=== PATIENT | female | born 2000 | race Caucasian/White ===

== ENCOUNTER 2024-01-07 13:13 | Emergency (ER) | payer OTHER, SELFPAY ==
--- NOTE | ~2024-01-07 | CT_ITS ---
EXAMINATION: CT cervical spine wo con DATE: 01/07/2024 14:55 INDICATION: abnormal xray TECHNIQUE: Computed tomography (CT) of the cervical spine was performed without intravenous contrast. Automated exposure control and iterative reconstruction technique were employed. The dose-length pro duct was 263.96 mGy-cm. COMPARISON: None. FINDINGS: Exam limited by nonstandard positioning and obliquity in the initial axial and reformatted views. Vertebral Body Alignment: Intact. Reversed lordosis, centered at C6. Craniocervical and atlantoaxial alignment: Moderate degenerative change. Alignment intact. Osseous structures/fracture: No evidence of a lytic or blastic process in the visualized spine. No e vidence of acute fracture. Cervical soft tissues: The paraspinal soft tissues planes are maintained. 1.8 cm right thyroid nodule . Degenerative changes: No significant degenerative changes. IMPRESSION: No acute fracture or traumatic malalignment in the cervical spine. 1.8 cm right thyroid nodule, recommend nonemergent thyroid ultrasound for further characterization. Reviewed, dictated and finalized at location K. IMPRESSION: No acute fracture or traumatic malalignment in the cervical spine. 1.8 cm right thyroid nodule, recommend nonemergent thyroid ultrasound for furth er characterization.
--- NOTE | ~2024-01-07 | XR_ITS ---
XR_[id number] 01/07/2024 14:00 Indication: Cervical pain. Procedure: 5 views of the cervical spine Comparison: No prior studies for comparison. Findings: There is dextroscoliosis. Vertebral body heights are maintained. There is abnormal appearan ce to the facet joints at C6-7. Cannot exclude perched facet. Recommend correlation with CT. No prev ertebral soft tissue abnormality. Impression: 1: Atypical appearance to the facet joints at C6-7. Correlation with CT recommended to exclude perche d facet. Reviewed, dictated and finalized at location B. Impression: 1: Atypical appearance to the facet joints at C6-7. Correlation with CT recomme nded to exclude perched facet.
[2024-01-07 13:17] VITALS: BP 151/107; PULSE 96; RESP 20; TEMP 36.4; O2SAT 100
[2024-01-07] MEDS: KETOROLAC 30 MG/ML VIAL (*BKC) IM (16:21)
[2024-01-07] MEDS: ACETAMINOPHEN 500 MG TABLET 1000 MG PO (16:21)
[2024-01-07] MEDS: CYCLOBENZAPRINE HCL 10 MG TABLET PO (16:21)
--- NOTE | 2024-01-07 17:22 | ED.GENADULT ---
HPI - General Adult General Chief complaint: Neck Pain/Injury Stated complaint: neck pain Time Seen by Provider: 01/07/24 16:04 History of Present Illness HPI narrative: Kamini Black is a 23 y/o female who presents with complaints of right sided neck pain that started yesterday. No midline cervical spine pain, pain more lateral and right side worse with movement and palpation No sore throat or difficulty swallowing. She has not taken anything for the pain. Denies any fever/chills Related Data Allergies Allergy/AdvReac Type Severity Reaction Status Date / Time nifedipine Allergy Unknown Unknown Verified 01/07/24 13:13 Review of Systems Review of Systems: All systems reviewed & are unremarkable except as noted in HPI and below PMFSH Family History Family History Other Family history of malignant neoplasm Social History Social History Smoking status: Current every day smoker Alcohol intake: never Exam Narrative: GENERAL: Well-appearing, well-nourished, and in no acute distress. HEAD: Normocephalic, atraumatic. EYES: PERRLA and EOMI. ENT: Nares clear, no rhinorrhea or epistaxis. Mucous membranes moist. Oropharynx without tonsillar hypertrophy exudate or other lesions. NECK: Supple. No adenopathy or masses. No carotid bruits or JVD CHEST: Clear to auscultation. No respiratory distress. No wheezes rales or rhonchi HEART: Regular rate and rhythm. No murmur heard. Normal peripheral pulses. ABDOMEN: Soft, nontender, nondistended, normal active bowel sounds. EXTREMITIES: Normal range of motion. No edema. SKIN: Warm, dry, no rash. NEURO: No focal deficits. Alert and oriented x3. PSYCH: Normal mood and affect. Course Vital Signs Vital signs: Vital Signs Temperature 36.4 C L 01/07/24 13:17 Pulse Rate 96 01/07/24 13:17 Respiratory Rate 20 01/07/24 13:17 Blood Pressure 151/107 H 01/07/24 13:17 Pulse Oximetry 100 01/07/24 13:17 Oxygen Delivery Room Air 01/07/24 13:17 Temperature 36.4 C L 01/07/24 13:17 Pulse Rate 96 01/07/24 13:17 Respiratory Rate 20 01/07/24 13:17 Blood Pressure 151/107 H 01/07/24 13:17 Pulse Oximetry 100 01/07/24 13:17 Oxygen Delivery Room Air 01/07/24 13:17 Medical Decision Making MDM Narrative Medical decision making narrative: Patient with right sided neck pain that started yesterday / no midline cervical spine tenderness Pain more muscular in nature worse with movement and palpation No known injury or trauma NO erythema/ evidence of infection oral pharynx clear/ pink intact no ear pain patinet was protocoled xr and ct of cervical spine in triage xr of CC and CT of CC - No acute fracture or traumatic malalignment in the cervical spine. 1.8 cm right thyroid nodule, recommend nonemergent thyroid ultrasound for further characterization. Atypical appearance to the facet joints at C6-7. Correlation with CT recommended to exclude perched facet. Discussed findings with pt and re-evaluated after the pain medication and she states she feels much better pain has improved not all the way gone but she has improved mobility with the decreased pain Will d/c home with continued pain medication, close follow up with PCP strict return precautions provided. Medical Records Medical records reviewed: Yes I reviewed the external patient's medical records. Vital Signs Vital Signs: Vital Signs Temperature 36.4 C L 01/07/24 13:17 Pulse Rate 96 01/07/24 13:17 Respiratory Rate 01/07/24 13:17 Blood Pressure 151/107 H 01/07/24 13:17 Pulse Oximetry 100 01/07/24 13:17 Oxygen Delivery Room Air 01/07/24 13:17 Temperature 36.4 C L 01/07/24 13:17 Pulse Rate 96 01/07/24 13:17 Respiratory Rate 20 01/07/24 13:17 Blood Pressure 151/107 H 01/07/24 13:17 Pulse Oximetry 100 01/07/24 13:17 Oxygen D
[2024-01-07 17:59] VITALS: BP 110/74; PULSE 66; RESP 20; O2SAT 99
== END 2024-01-07 18:00 | disposition home or self-care (01) ==
PROVIDERS: Emergency Provider Nurse Practitioner Family
DX: S16.1XXA Strain of muscle, fascia and tendon at neck level, initial encounter (principal); E04.1 Nontoxic single thyroid nodule; X58.XXXA Exposure to other specified factors, initial encounter
CPT/HCPCS: 72040; 72125; 96372; 99284; A9270; J1885

== ENCOUNTER 2024-11-09 12:10 | Emergency (ER) | payer SELFPAY ==
[2024-11-09 12:10] VITALS: O2SAT 99
[2024-11-09 12:11] VITALS: BP 165/109; PULSE 83; RESP 16; TEMP 36.7; O2SAT 99
--- NOTE | 2024-11-09 12:12 | ED.URI ---
HPI - URI/Sore Throat General Chief Complaint: Upper Respiratory Infection Stated Complaint: fever, cough Time Seen by Provider: 11/09/24 12:12 Source: patient Mode of arrival: ambulatory Limitations: no limitations History of Present Illness HPI Narrative: patient is a 24-year-old female with a cough and congestion for the past 3 days. She had exposure to flu. MD elicited complaint: cough and nasal congestion Pertinent past history: other ( Patient vapes) Onset (ago): day(s) ( 3) Consistency: constant Severity: moderate Pain scale (0-10): 1 Description of mucous: clear Able to tolerate fluids by mouth: Yes Exacerbating factors: nothing Relieving factors: nothing Context: sick contacts Associated symptoms: myalgias, headache, rhinorrhea, nasal congestion, cough and chest pain Treatments prior to arrival: acetaminophen Related Data Allergies Allergy/AdvReac Type Severity Reaction Status Date / Time nifedipine Allergy Unknown Unknown Verified 11/09/24 12:12 Review of Systems Review of Systems: All systems reviewed & are unremarkable except as noted in HPI and below Constitutional: Constitutional: Reports no additional constitutional complaints Eyes: Eyes: Reports no additional eye complaints ENT: Reports system reviewed and no additional complaints, except as documented Cardiovascular: Cardiovascular: Reports no additional cardiovascular complaints Respiratory: Respiratory: Reports no additional respiratory complaints Gastrointestinal: Gastrointestinal: Reports no additional gastrointestinal complaints Genitourinary: Genitourinary: Reports no additional female genitourinary complaints Musculoskeletal: Musculoskeletal: Reports no additional musculoskeletal complaints Integumentary/Breasts: Skin/Breast: Reports system reviewed and no additional complaints, except as docu Neurologic: Reports system reviewed and no additional complaints, except as documented Psychiatric: Psychiatric: Reports no additional psychiatric complaints Endocrine: Endocrine: Reports no additional endocrine complaints Hematologic/Lymphatic: Hematologic/Lymphatic: Reports no additional hematologic/lymphatic complaints Allergic/Immunologic: Allergic/Immunologic: Reports no additional allergic/immunologic complaints PMFSH Family History Family History Other Family history of malignant neoplasm Social History Social History Smoking status: Current every day smoker Alcohol intake: never Exam Const: General: ill appearing Nutritional Appearance: well nourished Orientation/consciousness: patient oriented x3 Limitations: no limitations HENMT: Head: normal to inspection Ears: external ears normal Face/Nose/Sinus: Normal external nose present Eyes: Conjunctivae: conjunctivae normal Pupils: Equal, round and reactive pupils present EOM: EOMs intact bilaterally Neck: Neck: normal visual inspection Chest: Chest palpation & inspection: normal inspection of the chest Resp: Effort & Inspection: normal respiratory effort and not labored Auscultation: clear to auscultation bilaterally and no crackles Cardio: Rate: regular rate Rhythm: regular rhythm Heart sounds: no murmurs GI: Inspection: non-distended GI Palp: Yes Soft to palpation and No Tenderness to palpation present (GI) Auscultation: normal bowel sounds : General: Yes bladder normal to palpation Back/Spine/Pelvis: Back: no CVA tenderness Skin: General skin exam: normal color Rashes: no rashes Wounds: no wounds Neuro: General: patient oriented x3 Cranial nerves: Yes Nystagmus not present Speech: normal speech Extrem: General: normal to inspection Psych: Mental Status: mental status grossly normal Affect: normal affect Course Vital Signs Vital signs: Vital Signs Pulse Oximetry 99 11/09/24 12:10 Oxygen Delivery Room Air 11/09/24 12:10 Temperature 36.7 C 11/09/24 12:11 Pulse Rate 83 11/09/24 12:11 Respiratory Rate 16 11/09/24 12:11 Blood Pressure 165/109 H 11/09/24 12:11 Pulse Oximetry 99 11/09/24 12:11 Oxygen Delivery Room Air 11/09/24 12:11 MDM - URI/Sore Throat MDM Narrative Medical decision making narrative: patient is a 24-year-old female with influenza B positive. Too late for Tamiflu. I will give her Tessalon. Off work. Lab Data Attestation: I reviewed the patient's lab results. Labs: Lab Results 11/09/24 Range/Units 12:12 Influenza A (RT-PCR) Negative (Negative) Influenza B (RT-PCR) Positive A (Negative) RSV (RT-PCR) Negative (Negative) SARS-CoV-2 RNA (RT-PCR) Negative (Negative) Discharge Plan Discharge Clinical Impression: Influenza B Patient Disposition: Home, Self-Care Condition: Stable Instructions: Influenza (ED) Patient Language: Argentine Prescriptions: New benzonatate 200 mg capsule 200 mg PO TID PRN (Reason: cough) Qty: 30 0RF No Action cyclobenzaprine 10 mg tablet 10 mg PO TID PRN (Reason: muscle spasm) Qty: 30 0RF naproxen 500 mg tablet,delayed release (DR/EC) 500 mg PO BID PRN (Reason: pain) Qty: 28 0RF Follow-up/Referrals: UNKNOWN,DOCTOR [Primary Care Provider] - Stand Alone Forms: Work/School Release IP Time of Disposition: 13:06
--- NOTE | 2024-11-09 12:16 | PC.NURSE ---
covid culture sent to lab
[2024-11-09 12:54] LABS: SARS-CoV-2 RNA PCR Negative (Negative)
[2024-11-09 12:57] LABS: Influenza A QL RT-PCR Negative (Negative); Influenza B QL RT-PCR Positive (Negative); RSV RNA, RT-PCR Negative (Negative)
[2024-11-09 13:09] VITALS: BP 140/81; PULSE 80; RESP 16; TEMP 36.7; O2SAT 99
--- OUTSIDE RECORDS SUMMARY | 2024-11-09 13:50 | XMS_ITS | Referral Summary ---
Author Organization [facility] Address [address] [place] [address] Care Team Providers Care Parimutuel Cashier Name Role Phone See Jacobs Primary Care Provider + Allergies Active Allergy Reactions Criticality Noted Date Comments Nifedipine Swelling Medium 07/13/2022 Medications oseltamivir (TAMIFLU) 75 mg capsule Take 1 capsule (75 mg total) by mouth every 12 (twelve) hours 10 capsule 2 Active ondansetron ODT (ZOFRAN-ODT) 4 mg disintegrating tablet Take 1 tablet (4 mg total) by mouth every 8 (eight) hours as needed for nausea or vomiting 20 tablet 2 Active guaiFENesin (ROBITUSSIN) syrup 100 mg/5 mL Take 5-10 mL (100-200 mg total) by mouth every 4 (four) hours as needed for cough 60 mL 2 Active Social History Tobacco Use Types Packs/Day Years Used Date Smoking Tobacco: Never Assessed Personal Safety Answer Date Recorded Getting School Help Needed Not on file 11/16 Comments Unknown Sex and Gender Information Value Date Recorded Sex Assigned at Not on file Legal Sex Female 6:07 PM CDT Gender Identity Not on file Sexual Orientation Not on file Last Filed Vital Signs Vital Sign Reading Time Taken Comments Blood Pressure 137/92 07/13/2022 6:13 PM CDT Pulse 95 07/13/2022 6:13 PM CDT Temperature 37.3 C (99.1 F) 07/13/2022 6:13 PM CDT Respiratory Rate 20 07/13/2022 6:13 PM CDT Oxygen Saturation 99% 07/13/2022 6:13 PM CDT Inhaled Oxygen Concentration - - Weight 83.3 kg (183 lb 10.3 oz) 07/13/2022 6:13 PM CDT Height 167.6 cm (5' 6 ) 07/13/2022 6:13 PM CDT Body Mass Index 29.64 07/13/2022 6:13 PM CDT Plan of Treatment Not on file Insurance [facility] Care Teams Parimutuel Cashier Relationship Specialty Start Date End Date See Jacobs PA [address] [place] [id number] PCP - General Internal Medicine 07/13/22
--- OUTSIDE RECORDS SUMMARY | 2024-11-09 13:50 | XMS_ITS | Patient Health Summary ---
Author Organization [email or web address] Address [address] [place] [address] Care Team Providers Care Hand Tapper Name Role Phone Unavailable Primary Care Provider Unavailabl e Note from [email or web address],non-owned Affiliates and Associated Physician Practices is amultiple site organization consisting of ambulatory clinics and hospital sitesin [place], [place], [place] and [place]. This disclosure is being madepursuant to the Care Everywhere program and may not contain all information available regarding this patient. Last updated 18.[email or web address] Allergies No known active allergies Medications * Be aware that medications may not be up to date on this document. Alwaysverify current medications with the patient. * hydrocodone-acetaminophen (NORCO) 5-325 MG tablet(Started 01/01/2013) Take 1-2 Tabs by mouth every 6 hours as needed for Pain. * polyethylene glycol 3350 (MIRALAX) powder(Started 08/16/2015) Take 17 g by mouth once daily Active Problems Problem Noted Date Diagnosed Date Plantar fasciitis 11/14/2012 Bone cyst, left heel 12/07/2011 Normal hearing test 11/30/2010 Social History Tobacco Use Types Packs/Day Years Used Date Smoking Tobacco: Every Day Smokeless Tobacco: Never Alcohol Use Standard Drinks/Week Comments No 0 (1 standard drink = 0.6 oz pur e alcohol) Sex and Gender Information Value Date Recorded Sex Assigned at Not on file Gender Identity Not on file Sexual Orientation Not on file Last Filed Vital Signs Vital Sign Reading Time Taken Comments Blood Pressure 124/76 08/16/2015 9:37 PM COST ACCOUNTANT Pulse 76 08/16/2015 9:37 PM COST ACCOUNTANT Temperature 37.3 C (99.1 F) 08/16/2015 9:37 PM COST ACCOUNTANT Respiratory Rate 16 08/16/2015 9:37 PM COST ACCOUNTANT Oxygen Saturation 100% 08/16/2015 5:30 PM COST ACCOUNTANT Inhaled Oxygen Concentration - - Weight 60.8 kg (134 lb) 08/16/2015 5:30 PM COST ACCOUNTANT Height 166 cm (5' 5.35 ) 01/22/2014 10:25 AM CDT Body Mass Index - - Medical Devices Implanted Type Area Applied Mathematician Device Identifier Shelf Expiration Date Model / Serial / Lot Dustin Bone Prodense Inj 10cc Implanted:Qty: 1 on 01/01/2013 by Alexis Kowalski MD at [facility] Left: Ankle 11/13/2015 87SR-0410 / N/A / [id number] Dustin Bone Prodense Inj 10cc Implanted:Qty: 1 on 01/01/2013 by Alexis Kowalski MD at [facility] Left: Ankle 11/13/2015 87SR-0410 / N/A / [id number] Procedures * XR ABD OBSTRUCTION SERIES 2VW(Performed 08/16/2015) Performed for Abdominal pain, generalized * HCG URINE QUALITATIVE - POCT (IP) BEAKER(Performed 08/16/2015) * DIFFERENTIAL MANUAL(Performed 08/16/2015) * COMPREHENSIVE METABOLIC PANEL(Performed 08/16/2015) * LIPASE BLOOD(Performed 08/16/2015) * AMYLASE BLOOD(Performed 08/16/2015) * CBC W AUTO DIFFERENTIAL(Performed 08/16/2015) * CHLAMYDIA + GC AMPLIFIED PROBE(Performed 08/16/2015) * URINE MICROSCOPIC ONLY(Performed 08/16/2015) * URINALYSIS REFLEX TO MICROSCOPIC NO CULTURE(Performed 08/16/2015) * XR ANKLE LEFT 2VW(Performed 02/13/2013) Performed for Bone cyst, left heel * PATHOLOGY/CYTOLOGY REPORT ORDER(Performed 01/05/2013) * BIOPSY BONE (OPEN)(Performed 01/01/2013) Performed for Neoplasm Of Unspecified Nature Of Bone, Soft Tissue, And Skin * XR CALCANEUS LEFT 2VW OR MORE(Performed 01/01/2013) Performed for Bone cyst, left heel * Popliteal Block(Performed 01/01/2013) * XR CALCANEUS LEFT 2VW OR MORE(Performed 01/01/2013) Performed for Bone cyst, left heel * PATHOLOGY TISSUE EXAM (STL)(Performed 01/01/2013) Performed for Bone cyst, left heel * HCG URINE QUALITATIVE - POCT (IP) BEAKER(Performed 01/01/2013) * XR FOOT LEFT 3VW OR MORE(Performed 12/19/2012) Performed for Bone cyst, left heel * XR FOOT LEFT WT BEARING 2VW(Performed 11/14/2012) Performed for Pain in joint, ankle and foot * XR FOOT RIGHT WT BEARING 2VW(Performed 11/14/2012) Performed for Pain in joint, ankle and foot * XR FOOT LEFT 3VW OR MORE(Performed 12/07/2011) Performed for Bone lesion * XR FOOT LEFT 3VW OR MORE(Performed 05/18/2011) Performed for Normal hearing test * IMAGING/RADIOLOGY/XRAY RESULTS ORDER(Performed 05/16/2011) * AUDIOLOGY/TYMPANOMETRY ORDER(Performed 12/07/2010) Results * XR ABD OBSTR SERIES (08/16/2015 8:28 PM COST ACCOUNTANT) Anatomical Region Laterality Modality Abdomen Radiographic Patty ging 08/17/2015 7:02 AM COST ACCOUNTANT Impressions 08/17/2015 7:03 AM COST ACCOUNTANT Nonobstructive bowel gas pattern. Narrative 08/17/2015 7:03 AM COST ACCOUNTANT Exam: Abdomen obstruction series History: 15-year-old female with four-day history of lower abdominal pain and vomiting. Comparison: None Findings: An umbilical ring is seen. An air-fluid level is present in the stomach. Stool and gas is present throughout the colon and rectum. There is no evidence of bowel obstruction, pneumatosis, or free intraperitoneal air. No abnormal calcifications are seen. The lung bases are clear. The osseous structures are intact. Procedure Note Rivka Anne MD - 08/17/2015 Exam: Abdomen obstruction series History: 15-year-old female with four-day history of lower abdominal pain and vomiting. Comparison: None Findings: An umbilical ring is seen. An air-fluid level is present in the stomach. Stool and gas is present throughout the colon and rectum. There is no evidence of bowel obstruction, pneumatosis, or free intraperitoneal air. No abnormal calcifications are seen. The lung bases are clear. The osseous structures are intact. IMPRESSION Nonobstructive bowel gas pattern. Samaria Phan MD DIAGNOSTIC IMAGIN G ORDERABLES * HCG URINE QUALITATIVE - POCT (IP) BEAKER (08/16/2015 8:07 PM COST ACCOUNTANT) Only the most recent of2 resultswithin the time period is included. HCG Qual Urine Negative Negative [facility] QC Verified Yes Yes [facility] PO CT TESTING Urine specimen (specimen) URINE / Unknown 08/16/2015 8:07 PM COST ACCOUNTANT Nelda Collins MD LAB - POINT OF CARE ORDERABLES Performing Organization Address City/State/[facility] Co de Phone Number [facility] [phone] * (ABNORMAL) DIFFERENTIAL MANUAL (08/16/2015 7:50 PM COST ACCOUNTANT) WBC Auto 10.7 x10^9/L 08/16/2015 8:44 PM [facility] WBC Corrected 4.5 - 11.0 x10^9/L 08/16/2015 8:44 PM [facility] nRBC /100 WBC 08/16/2015 8:44 PM [facility] Neutrophil % Manual 70 31 - 78 % 08/16/2015 8:44 PM [facility] Lymphocytes % Manual 15 13 - 54 % 08/16/2015 8:44 PM [facility] Monocytes % Manual 6 4 - 13 % 08/16/2015 8:44 PM [facility] Eosinophils % Manual 1 0 - 8 % 08/16/2015 8:44 PM [facility] Atypical Lymphocyte % Manual 4(H) <=0 % 08/16/2015 8:44 PM [facility] Band % Manual 4 % 08/16/2015 8:44 PM [facility] Cells Counted 100 # cells 08/16/2015 8:44 PM [facility] Platelet Estimation Adequate platelets Normal, Adequate platelets 08/16/2015 8:44 PM [facility] RBC Morphology Normal 08/16/2015 8:44 PM [facility] WBC Morph Normal 08/16/2015 8:44 PM [facility] Blood BLOOD SPECIMEN / Unknown Lab Venipuncture / Unknown 08/16/2015 7:50 PM COST ACCOUNTANT 08/16/2015 7:54 PM COST ACCOUNTANT Marcio Nguyen MD LAB - HEMATOLOGY ORD ERABLES [facility] [address] [place] [address] * (ABNORMAL) CBC W AUTO DIFFERENTIAL (08/16/2015 7:50 PM COST ACCOUNTANT) WBC 10.7 4.5 - 11.0 x10^9/L 08/16/2015 8:14 PM [facility] WBC Corrected x10^9/L 08/16/2015 8:14 PM [facility] RBC 4.96 4.10 - 5.10 x10^12/L 08/16/2015 8:14 PM [facility] Hemoglobin 14.3 12.0 - 16.0 gm/dL 08/16/2015 8:14 PM [facility] Hematocrit 40.5 36.0 - 47.0 % 08/16/2015 8:14 PM [facility] MCV 81.7 78.0 - 98.0 fl 08/16/2015 8:14 PM [facility] MCH 28.8 25.0 - 35.0 pg 08/16/2015 8:14 PM [facility] MCHC 35.3 31.0 - 37.0 gm/dL 08/16/2015 8:14 PM [facility] Platelet Count 215 100 - 400 x10^9/L 08/16/2015 8:14 PM [facility] RDW-CV 13.0 11.5 - 14.0 % 08/16/2015 8:14 PM [facility] MPV 10.6(H) 6.0 - 9.5 fl 08/16/2015 8:14 PM [facility] Blood BLOOD SPECIMEN / Unknown Lab Venipuncture / Unknown 08/16/2015 7:50 PM COST ACCOUNTANT 08/16/2015 7:54 PM COST ACCOUNTANT Marcio Nguyen MD LAB - HEMATOLOGY ORD ERABLES [facility] [address] [place] [address] * (ABNORMAL) COMPREHENSIVE METABOLIC PANEL (08/16/2015 7:50 PM [facility]) [facility] Glucose 83 70 - 105 mg/dL 08/16/2015 8:19 PM [facility] Sodium 140 136 - 145 mmol/L 08/16/2015 8:19 PM [facility] Potassium 3.9 3.5 - 5.1 mmol/L 08/16/2015 8:19 PM [facility] Chloride 105 98 - 107 mmol/L 08/16/2015 8:19 PM [facility] CO2 23 20 - 28 mmol/L 08/16/2015 8:19 PM [facility] Calcium 9.87 9.08 - 10.48 mg/dL 08/16/2015 8:19 PM [facility] Anion Gap 12 5 - 20 mmol/L 08/16/2015 8:19 PM [facility] BUN 11.5 5.3 - 18.7 mg/dL 08/16/2015 8:19 PM [facility] Creatinine 0.63 0.61 - 1.07 mg/dL 08/16/2015 8:19 PM [facility] Alkaline Phosphatase 63(L) 100 - 390 U/L 08/16/2015 8:19 PM [facility] ALT 14 U/L 08/16/2015 8:19 PM [facility] AST 15 3 - 35 U/L 08/16/2015 8:19 PM [facility] Protein Total 7.9 6.3 - 8.2 gm/dL 08/16/2015 8:19 PM [facility] Albumin 4.4 3.3 - 4.9 gm/dL 08/16/2015 8:19 PM [facility] Bilirubin Total 1.0 0.3 - 1.2 mg/dL 08/16/2015 8:19 PM [facility] eGFR by MDRD >60 mL/min/1.7 3m2 08/16/2015 8:19 PM [facility] Comment: eGFR calculations are not performed for children under 18 years old. eGFR by MDRD >60 mL/min/1.7 3m2 08/16/2015 8:19 PM [facility] Comment: eGFR calculations are not performed for children under 18 years old. Blood BLOOD SPECIMEN / Unknown Lab Venipuncture / Unknown 08/16/2015 7:50 PM COST ACCOUNTANT 08/16/2015 8:01 PM COST ACCOUNTANT Marcio Nguyen MD LAB - CHEMISTRY KELLY FUENTES Performing Organization Address [facility] Co de Phone Number [facility] [address] [place] [phone] * LIPASE BLOOD (08/16/2015 7:50 PM COST ACCOUNTANT) Lipase 16 10 - 220 U/L 08/16/2015 8:19 PM COST ACCOUNTANT [facility] Blood BLOOD SPECIMEN / Unknown Lab Venipuncture / Unknown 08/16/2015 7:50 PM COST ACCOUNTANT 08/16/2015 8:01 PM COST ACCOUNTANT Marcio Nguyen MD LAB - CHEMISTRY KELLY FUENTES Performing Organization Address [facility] Co de Phone Number [facility] [address] [place] [phone] * AMYLASE BLOOD (08/16/2015 7:50 PM COST ACCOUNTANT) Amylase 47 5 - 65 U/L 08/16/2015 8:19 PM COST ACCOUNTANT [facility] Blood BLOOD SPECIMEN / Unknown Lab Venipuncture / Unknown 08/16/2015 7:50 PM COST ACCOUNTANT 08/16/2015 8:01 PM COST ACCOUNTANT Mracio Nguyen MD LAB - CHEMISTRY KELLY FUENTES Performing Organization Address [facility] de Phone Number [facility] [address] [place] [phone] * CHLAMYDIA + GC AMPLIFIED PROBE (08/16/2015 7:45 PM COST ACCOUNTANT) Chlamydia Amplified Probe Negative Negative 08/17/2015 3:34 PM COST ACCOUNTANT [facility] GC Amplified Probe Negative Negative 08/17/2015 3:34 PM COST ACCOUNTANT [facility] Urine URINE / Unknown 08/16/2015 7 :45 PM COST ACCOUNTANT 08/16/2015 7:54 PM COST ACCOUNTANT Narrative [facility] - 08/17/2015 3:34 PM COST ACCOUNTANT This test was developed and its performance characteristics determined by the [facility], [facility]. Female urine specimens tested by the [facility] have not been cleared or approved by the U.S. Food and Drug Administration (FDA). The laboratory is regulated under the Clinical Laboratory Improvement Amendments (CLIA) as qualified to perform high-complexity testing. This test is used for clinical purposes. It should not be regarded as investigational or for research. Results based on detection/no detection of ribosomal RNA by amplified method. Samaria Phan MD LAB - MICROBIOLOG Y ORDERABLES [facility] [address] [place] [address], [facility] [phone] * (ABNORMAL) URINALYSIS ROUTINE AUTO (08/16/2015 7:44 PM COST ACCOUNTANT) Color UA Yellow Straw, Yellow, Dark Yellow 08/16/2015 8:20 PM [facility] Clarity UA Clear 08/16/2015 8:20 PM [facility] Specific [place] UA >=1.030 1.005 - 1.030 08/16/2015 8:20 PM [facility] pH UA 6.0 5.0 - 8.0 pH 08/16/2015 8:20 PM [facility] Protein UA 1+(A) Negative 08/16/2015 8:20 PM [facility] Blood UA 2+(A) Negative 08/16/2015 8:20 PM [facility] Leukocyte UA Negative Negative 08/16/2015 8:20 PM [facility] Nitrite UA Negative Negative 08/16/2015 8:20 PM [facility] Glucose UA Negative Negative 08/16/2015 8:20 PM [facility] Ketone UA 3+(AA) Negative 08/16/2015 8:20 PM [facility] Bilirubin UA 1+(A) Negative 08/16/2015 8:20 PM [facility] Comment:ictotest=negative Urobilinogen UA 0.2 0.1 - 1.0 EU/dL 08/16/2015 8:20 PM [facility] Urine URINE SPECIMEN OBTAINED BY CLEAN CATCH PROCEDURE / Unknown 08/16/2015 7:44 PM COST ACCOUNTANT 08/16/2015 7:54 PM COST ACCOUNTANT Samaria Phan MD LAB - URINALYSIS ORDERABLES Performing Organization Address [facility] de Phone Number [facility] [address] [place] [phone] * (ABNORMAL) URINALYSIS MICROSCOPIC ONLY (08/16/2015 7:44 PM COST ACCOUNTANT) RBC UA 10-20(A) 0-2, 2-5 # /hpf 08/16/2015 8:27 PM [facility] WBC UA 2-5 0-2, 2-5 # /hpf 08/16/2015 8:27 PM [facility] Bacteria UA 2+(A) None Seen, Trace 08/16/2015 8:27 PM [facility] Epithelial Cell UA 2-5 0-2, 2-5 08/16/2015 8:27 PM [facility] Mucus UA 2+ 08/16/2015 8:27 PM [facility] Urine URINE SPECIMEN OBTAINED BY CLEAN CATCH PROCEDURE / Unknown 08/16/2015 7:44 PM COST ACCOUNTANT 08/16/2015 7:54 PM COST ACCOUNTANT Samaria Phan MD LAB - URINALYSIS ORDERABLES Performing Organization Address [facility] de Phone Number [facility] [address] [place] [phone] * XR ANKLE 2 VW LEFT (02/13/2013 10:49 AM CDT) Anatomical Region Laterality Modality Lower Extremity Radiographic Patty ging 02/13/2013 10:5 5 AM CDT Impressions 02/13/2013 10:55 AM CDT Status post curettage and packing of a calcaneal bone cyst. Narrative 02/13/2013 10:55 AM CDT Two views of the right ankle performed 02/13/2013. 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 Frontal and lateral views of the left ankle were obtained. Since the prior films of January 01, 2013 the cast has been removed. Once again there is cement in the anterior aspect of the calcaneus filling a previously curettage bone cyst. A minimal amount of periosteal new bone is seen along the plantar aspect of the calcaneus at the level of the cement. There is no evidence of acute fracture. Procedure Note Lulu Bucio MD - 02/13/2013 Two views of the right ankle performed 02/13/2013. 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 Frontal and lateral views of the left ankle were obtained. Since the prior films of January 01, 2013 the cast has been removed. Once again there is cement in the anterior aspect of the calcaneus filling a previously curettage bone cyst. A minimal amount of periosteal new bone is seen along the plantar aspect of the calcaneus at the level of the cement. There is no evidence of acute fracture. IMPRESSION Status post curettage and packing of a calcaneal bone cyst. Alexis Kowalski MD DIAGNOSTIC IMAGING ORDERABLES * PATHOLOGY/CYTOLOGY REPORT ORDER (01/05/2013 8:06 AM CDT) Narrative 01/05/2013 8:06 AM CDT Procedure Note Document, Scanned - 01/05/2013 8:06 AM CDT Scanned Document LAB - PATHOLOGY/CYTO LOGY ORDERABLES * XR CALCANEUS 2+ VW LEFT (01/01/2013 12:43 PM CDT) Only the most recent of2 resultswithin the time period is included. Anatomical Region Laterality Modality Lower Extremity, Ankle / Foot Ra diographic Imaging 01/01/2013 1:15 PM CDT Impressions 01/01/2013 1:15 PM CDT Postoperative change as above. Narrative 01/01/2013 1:15 PM CDT Portable frontal and lateral views of the left calcaneus performed January 01, 2013 at 1227. History: Status post curettage and packing of a unicameral bone cyst. Frontal and lateral portable views of the left calcaneus were obtained. Since the intraoperative radiographs of same date a cast has been placed which obscures underlying bony detail. Cement has been placed in the lesion located in the distal one half of the calcaneus. Procedure Note Lulu Bucio MD - 01/01/2013 Portable frontal and lateral views of the left calcaneus performed January 01, 2013 at 1227. History: Status post curettage and packing of a unicameral bone cyst. Frontal and lateral portable views of the left calcaneus were obtained. Since the intraoperative radiographs of same date a cast has been placed which obscures underlying bony detail. Cement has been placed in the lesion located in the distal one half of the calcaneus. IMPRESSION Postoperative change as above. José Garcia MD DIAGNOSTIC IMAGING ORDERABLES * ANESTHESIA BLOCK PERF (01/01/2013 11:15 AM CDT) Wanda Joel - 01/01/2013 11:15 AM CDT Wanda Chow 01/01/2013 11:15 AM Preanesthetic Checklist Completed: patient identified, IV checked, site marked, risks and benefits discussed, surgical consent, monitors and equipment checked, pre-op evaluation, timeout performed and questions answered / anesthesia plan accepted Popliteal Procedures: ultrasound guided. Laterality: Left Position for procedure: supine Prep: mask and skin prepped with Chloraprep. Needle: 22 G Echogenic Additional response: 15 ml of 0.2% ropivacaine injected Injection technique: single-shot Response to Block: Start time: 01/01/2013 11:03 AM End time: 01/01/2013 11:10 AM Patient Care after Block: Instructions to patient: expected sensory deficits Additional Notes: Procedure Note Wanda Chow - 01/01/2013 11:13 AM CDT Preanesthetic Checklist Completed: patient identified, IV checked, site marked, risks and benefitsdiscussed, surgical consent, monitors and equipment checked, pre-opevaluation, timeout performed and questions answered / anesthesia planaccepted Popliteal Procedures: ultrasound guided. Laterality: Left Position for procedure: supine Prep: mask and skin prepped with Chloraprep. Needle: 22 G Echogenic Additional response: 15 ml of 0.2% ropivacaine injected Injection technique: single-shot Response to Block: Start time: 01/01/2013 11:03 AM End time: 01/01/2013 11:10 AM Patient Care after Block: Instructions to patient: expected sensory deficits Additional Notes: Wanda Chow GENERAL ANESTHESIA O MARY ANN * GROSS + MICRO EXAM (STL) (01/01/2013 10:19 AM CDT) Case Report Surgical Pathology Report Case: [id number] Authorizing Provider: Alexis Kowalski MD Ordering Provider: Alexis Kowalski MD Ordering Location: [facility] Collected: 01/01/2013 10:19 AM Pathologist: Remy Whitlock MD Received: 01/01/2013 11:40 AM Signed Out: 01/03/2013 12:42 AM (Final) Specimen: Lesion, Left Calcaneous Biopsy FSA 01/03/2013 12:42 AM [facility] Final Diagnosis SOFT TISSUE, LEFT CALCANEUS, BIOPSY: - UNICAMERAL BONE CYST. 01/03/2013 12:42 AM [facility] Clinical History This is a 12-year-old girl with a left calcaneus lesion who underwent biopsy of the stated lesion. 01/03/2013 12:42 AM T [facility] Frozen Section FROZEN SECTION DIAGNOSIS: SOFT TISSUE, LEFT CALCANEUS, BIOPSY: -BENIGN, FAVOR UNICAMERAL BONE CYST. ([facility]/cw) 01/03/2013 12:42 AM [facility] Gross Description The specimen is received fresh in single container of gross and microscopic examination labeled with the patient's name, Annastasia Black, and left calcaneus biopsy . It consists of multiple irregular fragments of soft to gritty, dark red and brown tissue submitted for frozen section. The tissue is submitted for permanent in cassette FSA1. ([facility]/cwh) 01/03/2013 12:42 AM CDT [facility] Microscopic Description 4 FS H&E, 1 H&E. Permanent sections confirm frozen section diagnosis. Sections show membranous connective tissue, blood clot with cholesterol clefts, and fibrin with trapped mononuclear cells including macrophages and plasma cells. There are hemosiderin-laden macrophages. (SH) 01/03/2013 12:42 AM CDT [facility] Disclaimer The performance characteristics of all immunohistochemical and indirect immunofluorescence stains (if any) cited in this report were determined by the [facility] Laboratory of [facility] (immunohistochemistry ) or the [facility] of [facility] (indirect immunofluorescence) in compliance with CLIA `88 regulations. Some of these tests rely on the use of analyte-specific reagents and are subject to specific labeling requirements by the FDA. Such tests were developed by the [facility] of [facility] or the [facility] of [facility] and have not been cleared or approved by the FDA. The FDA has determined that such clearance or approval is not necessary. These tests are used for clinical purposes and should not be regarded as investigational or for research. This case has been personally reviewed and interpreted by the attending (teaching) pathologist. 01/03/2013 12:42 AM CDT [facility] Synoptic Report 01/03/2013 12:42 AM CDT [facility] Miscellaneous samples (specimen) LESION SPECIMEN / Unknown 01/01/2013 10:19 AM CDT 01/01/2013 11:40 AM CDT Alexis Kowalski MD LAB - PATHOLOGY/CYT OLOGY ORDERABLES Performing Organization Address City/[facility] Co de Phone Number [facility] [address] [place] [address] * XR FOOT 3+ VW LEFT (12/19/2012 8:35 AM CDT) Only the most recent of3 resultswithin the time period is included. Anatomical Region Laterality Modality Ankle / Foot Radiographic Patty ging 12/19/2012 9:03 AM CDT Impressions 12/19/2012 12:03 PM CDT Unchanged anterior calcaneal simple bone cyst versus intraosseous lipoma. D: Mynor Randolph MD Narrative 12/19/2012 12:03 PM CDT Exam:, 3 views History: The calcaneal lesion Findings: There is geographic, well-circumscribed lucent lesion within the anterior calcaneus with sclerotic margins which has not significantly changed from prior exams.. The location and radiographic the appearance are consistent with either a simple bone cyst or an intraosseous lipoma. The remaining osseous structures are intact. The joint spaces and soft tissues are unremarkable. Procedure Note Arjun Mckeon - 12/19/2012 Exam:, 3 views History: The calcaneal lesion Findings: There is geographic, well-circumscribed lucent lesion within the anterior calcaneus with sclerotic margins which has not significantly changed from prior exams.. The location and radiographic the appearance are consistent with either a simple bone cyst or an intraosseous lipoma. The remaining osseous structures are intact. The joint spaces and soft tissues are unremarkable. IMPRESSION Unchanged anterior calcaneal simple bone cyst versus intraosseous lipoma. D: Mynor Randolph MD Alexis Kowalski MD DIAGNOSTIC IMAGING ORDERABLES * XR FOOT WEIGHT BEARING LEFT (11/14/2012 11:27 AM COST ACCOUNTANT) Anatomical Region Laterality Modality Ankle / Foot, Lower Extremity Ra diographic Imaging 11/14/2012 11:5 9 AM COST ACCOUNTANT Impressions 11/14/2012 4:31 PM COST ACCOUNTANT 1. Nonaggressive appearing lytic calcaneal lesion, unchanged. Differential diagnosis includes an intraosseous lipoma or simple bone cyst. D: Kilo Chong M.D. Narrative 11/14/2012 4:31 PM COST ACCOUNTANT Exam: Left foot, 2 views weight-bearing History: Pain Comparison: December 07, 2011 Findings: The well-defined lytic calcaneal lesion with sclerotic borders is unchanged. There is no acute fracture. The joint spaces are intact. The calcaneal pitch is 18 degrees. Procedure Note Joe Moore MD - 11/14/2012 Exam: Left foot, 2 views weight-bearing History: Pain Comparison: December 07, 2011 Findings: The well-defined lytic calcaneal lesion with sclerotic borders is unchanged. There is no acute fracture. The joint spaces are intact. The calcaneal pitch is 18 degrees. IMPRESSION 1. Nonaggressive appearing lytic calcaneal lesion, unchanged. Differential diagnosis includes an intraosseous lipoma or simple bone cyst. D: Kilo Chong M.D. Ian Bustillos MD DIAGNOSTIC IMAGISSA Hurtado ORDERABLES * XR FOOT WEIGHT BEARING RIGHT (11/14/2012 11:26 AM COST ACCOUNTANT) Anatomical Region Laterality Modality Ankle / Foot, Lower Extremity Ra diographic Imaging 11/14/2012 11:5 7 AM COST ACCOUNTANT Impressions 11/14/2012 4:31 PM COST ACCOUNTANT No acute osseous abnormality. D: Kilo Chong M.D. Narrative 11/14/2012 4:31 PM COST ACCOUNTANT Exam: Right foot weight bearing, 2 view History: Pain Comparison: No prior studies Findings: The bones and soft tissues are normal. The calcaneal pitch is 26 degrees. No fracture is identified. The joint spaces are intact. Procedure Note Joe Moore MD - 11/14/2012 Exam: Right foot weight bearing, 2 view History: Pain Comparison: No prior studies Findings: The bones and soft tissues are normal. The calcaneal pitch is 26 degrees. No fracture is identified. The joint spaces are intact. IMPRESSION No acute osseous abnormality. D: Kilo Chong M.D. Ian Bustillos MD DIAGNOSTIC IMAGIN G ORDERABLES * IMAGING/RADIOLOGY/XRAY RESULTS ORDER (05/16/2011 6:14 AM CDT) Anatomical Region Laterality Modality Other Narrative Transcriptions Document, Scanned - 05/16/2011 6:14 AM CDT Scanned Document IMAGING * AUDIOLOGY/TYMPANOMETRY ORDER (12/07/2010 9:18 PM CDT) Narrative Procedure Note Document, Scanned - 12/07/2010 2:17 PM CDT Scanned Document AUDIOLOGY SERVICES O MARY ANN
--- OUTSIDE RECORDS SUMMARY | 2024-11-09 13:50 | XMS_ITS | Clinical Summary ---
Author Organization [facility] Address [address] [place] [address] Care Team Providers Care Web Applications Administrator Name Role Phone Unavailable Primary Care Provider Unavailabl e Social History Tobacco Use Types Packs/Day Years Used Date Smoking Tobacco: Never Assessed Comments Unknown Sex and Gender Information Value Date Recorded Sex Assigned at Not on file Legal Sex Female 4:35 PM CDT Gender Identity Not on file Sexual Orientation Not on file Plan of Treatment Health Maintenance Due Date Last Done Comments Cervical Cancer Screening Pa p Smear (Age 21 to 29) Every 3 Years 1998 Cervical Cancer Screening 1998 Annual Physical 2001 HPV Vaccines (1 - 3-dose series) 2013 Hepatitis C 01/22/2016 DTaP, Tdap and Td Vaccines ( 1 - Tdap) 2017 Hepatitis B Vaccines (1 of 3 - 19+ 3-dose series) 2017 COVID-19 Vaccine (2023-2 5 season) 2024 Influenza Adult (#1) 2024 Meningococcal B Vaccine Aged Out No l onger eligible based on patient's age to complete this topic Meningococcal Vaccine Aged Out No racquel fang eligible based on patient's age to complete this topic Pneumococcal Vaccine: Pediat rics (0 to 5 Years) and At-Risk Patients (6 to 64 Years) Aged Out No longer eligible b ased on patient's age to complete this topic RSV Immunizations Under 20 Months Aged Out No longer eligible based on patient's age to complete this topic
--- OUTSIDE RECORDS SUMMARY | 2024-11-09 13:50 | XMS_ITS | Clinical Summary ---
Author Organization [facility] Address [address] [place] [address] Care Team Providers Care Concrete Form Setter Name Role Phone Unavailable Primary Care Provider Unavailabl e Source Comments [facility],non-owned Affiliates and Associated Physician Practices is amultiple site organization consisting of ambulatory clinics and hospital sitesin [place], [place], [place] and [place]. This disclosure is being madepursuant to the Care Everywhere program and may not contain all information available regarding this patient. Last updated 18.[facility] Allergies No known active allergies Medications * Be aware that medications may not be up to date on this document. Alwaysverify current medications with the patient. Medication Sig Dispensed Refills Start Date End Date Status hydrocodone-acetaminop hen (NORCO) 5-325 MG tablet Take 1-2 Tabs by mouth every 6 hours as needed for Pain. 60 Tab 0 01/01/2013 Active polyethylene glycol 3350 (MIRALAX) powder Take 17 g by mouth once daily 500 g 0 08/16/2015 Active Active Problems Problem Noted Date Diagnosed Date [...] Comments Blood Pressure 124/76 08/16/2015 9:37 PM ASSOCIATE ORACLE RETAIL Pulse 76 08/16/2015 9:37 PM ASSOCIATE ORACLE RETAIL Temperature 37.3 C (99.1 F) 08/16/2015 9:37 PM ASSOCIATE ORACLE RETAIL Respiratory Rate 16 08/16/2015 9:37 PM ASSOCIATE ORACLE RETAIL Oxygen Saturation 100% 08/16/2015 5:30 PM ASSOCIATE ORACLE RETAIL Inhaled Oxygen Concentration - - Weight 60.8 kg (134 lb) 08/16/2015 5:30 PM ASSOCIATE ORACLE RETAIL Height 166 cm (5' 5.35 ) 01/22/2014 10:25 AM CDT Body Mass Index - - Plan of Treatment Health Maintenance Due Date Last Done Comments PAP SMEAR 1998 HIV SCREENING 2013 HPV VACCINE (1 - 3-dose series) 2013 HEPATITIS C SCREENING 01/17/2016 DTAP/TDAP/TD VACCINES (1 - Tdap) 2017 HEPATITIS B VACCINE (1 of 3 - 19+ 3-dose series) 2017 COVID-19 VACCINE (1 - 2023-2 5 season) 2024 INFLUENZA VACCINE (#1) 2024 DEPRESSION SCREENING 09/16/2024 ZOSTER VACCINE (1 of 2) 01/22/2048 HIB VACCINE Aged Out No longer eligi ble based on patient's age to complete this topic MENINGOCOCCAL (Group B) VACCINE Aged Out No longer eligible based on patient's age to complete this topic MENINGOCOCCAL VACCINE Aged Out No racquel fang eligible based on patient's age to complete this topic PNEUMOCOCCAL VACCINE Aged Out No long er eligible based on patient's age to complete this topic Medical Devices Implanted Type Area Computer Operations Technician Device Identifier Shelf Expiration Date Model / Serial / Lot Dustin Bone Prodense Inj 10cc Implanted:Qty: 1 on 01/01/2013 by Alexis Kowalski MD at [facility] Left: Ankle 11/13/2015 87SR-0410 / N/A / [id number] Dustin Bone Prodense Inj 10cc Implanted:Qty: 1 on 01/01/2013 by Alexis Kowalski MD at [facility] Left: Ankle 11/13/2015 87SR-0410 / N/A / [id number]
--- OUTSIDE RECORDS SUMMARY | 2024-11-09 13:50 | XMS_ITS | CONTINUITY OF CARE DOCUMENT ---
Author Name chan giles Address Unknown Organization [facility] Address [address] [place] [address] Phone [phone] Care Team Providers Care Assurance Analyst Name Role Phone Chuy HSAHID, Amilcar Unavailable FABIAN DENIS MD Unavailable INSURANCE PROVIDERS Payer name Policy type / Coverage type [place] red green party ID HEALTHCARE AND FAMILY SERVICES Medicaid 1 [id number]
--- OUTSIDE RECORDS SUMMARY | 2024-11-09 13:50 | XMS_ITS | Referral Summary ---
Author Organization [facility] Address [address] [place] [address] Care Team Providers Care Comfort Filler Name Role Phone Unavailable Primary Care Provider Unavailabl e Source Comments [facility],non-owned Affiliates and Associated Physician Practices is amultiple site organization consisting of ambulatory clinics and hospital sitesin [place], [place], [place] and [place]. This disclosure is being madepursuant to the Care Everywhere program and may not contain all information available regarding this patient. Last updated 18.[facility] Allergies No known active allergies Medications * [...] Comments Blood Pressure 124/76 08/16/2015 9:37 PM REGULATORY SUBMISSIONS SPECIALIST Pulse 76 08/16/2015 9:37 PM REGULATORY SUBMISSIONS SPECIALIST Temperature 37.3 C (99.1 F) 08/16/2015 9:37 PM REGULATORY SUBMISSIONS SPECIALIST Respiratory Rate 16 08/16/2015 9:37 PM REGULATORY SUBMISSIONS SPECIALIST Oxygen Saturation 100% 08/16/2015 5:30 PM REGULATORY SUBMISSIONS SPECIALIST Inhaled Oxygen Concentration - - Weight 60.8 kg (134 lb) 08/16/2015 5:30 PM REGULATORY SUBMISSIONS SPECIALIST Height 166 cm (5' 5.35 ) 01/22/2014 10:25 AM CDT Body Mass Index - - Plan of Treatment Not on file Medical Devices Implanted Type Area Rv Body Mechanic Device Identifier Shelf Expiration Date Model / Serial / Lot Dustin Bone Prodense Inj 10cc Implanted:Qty: 1 on 01/01/2013 by Alexis Kowalski MD at [facility] Left: Ankle 11/13/2015 87SR-0410 / N/A / [id number] Dustin Bone Prodense Inj 10cc Implanted:Qty: 1 on 01/01/2013 by Alexis Kowalski MD at [facility] Left: Ankle 11/13/2015 87SR-0410 / N/A / [id number]
--- OUTSIDE RECORDS SUMMARY | 2024-11-09 13:50 | XMS_ITS | Clinical Summary ---
Author Organization [facility] Address [address] [place] [address] Care Team Providers Care Strap Stitcher Name Role Phone See Jacobs Primary Care [...] 07/13/2022 6:13 PM CDT Plan of Treatment Health Maintenance Due Date Last Done Comments Cervical Cancer Screening 1998 Depression Screening 1998 Hepatitis C Screening 1998 DTaP/Tdap/Td Vaccine (1 - Tdap) 2009 Varicella Vaccines (1 of 2 - 13+ 2-dose series) 2011 HPV Vaccines (1 - 3-dose series) 2013 Hepatitis B Screening 01/22/2016 Regular Well Visit/Exam 18-64 01/22/2016 Influenza Vaccine (#1) 2024 Pneumococcal vaccine <65 Aged Out No longer eligible based on patient's age to complete this topic [place] [address] [address] [place] [address] Care Teams Strap Stitcher Relationship Specialty Start Date End Date See Jacobs PA [address] [place] [phone] PCP - General Internal Medicine 07/13/22
--- OUTSIDE RECORDS SUMMARY | 2024-11-09 14:16 | XMS_ITS | Referral Summary ---
Author Organization [facility] Address [address] [place] [address] Care Team Providers Care Negative Developer Name Role Phone See Jacobs Primary Care [...] Plan of Treatment Not on file Insurance [facility] Care Teams Negative Developer Relationship Specialty Start Date End Date See Jacobs PA [address] [place] [id number] PCP - General Internal Medicine 07/13/22
--- OUTSIDE RECORDS SUMMARY | 2024-11-09 14:16 | XMS_ITS | Clinical Summary ---
Author Organization [facility] Address [address] [place] [address] Care Team Providers Care Privacy Manager Name Role Phone Unavailable Primary Care Provider Unavailabl e Source Comments [facility],non-owned Affiliates and Associated Physician Practices is amultiple site organization consisting of ambulatory clinics and hospital sitesin [place], [place], [place] and [place]. This disclosure is being madepursuant to the Care Everywhere program and may not contain all information available regarding this patient. Last updated 18.[employer] [facility] Allergies No known active allergies Medications * [...] Comments Blood Pressure 124/76 08/16/2015 9:37 PM RN CLINICIAN Pulse 76 08/16/2015 9:37 PM RN CLINICIAN Temperature 37.3 C (99.1 F) 08/16/2015 9:37 PM RN CLINICIAN Respiratory Rate 16 08/16/2015 9:37 PM RN CLINICIAN Oxygen Saturation 100% 08/16/2015 5:30 PM RN CLINICIAN Inhaled Oxygen Concentration - - Weight 60.8 kg (134 lb) 08/16/2015 5:30 PM RN CLINICIAN Height 166 cm (5' 5.35 ) 01/22/2014 [...] this topic Medical Devices Implanted Type Area Automatic Grinding Machine Operator Device Identifier Shelf Expiration Date Model / Serial / Lot Dustin Bone Prodense Inj 10cc Implanted:Qty: 1 on 01/01/2013 by Alexis Kowalski MD at [facility] Left: Ankle 11/13/2015 87SR-0410 / N/A / [id number] Dustin Bone Prodense Inj 10cc Implanted:Qty: 1 on 01/01/2013 by Alexis Kowalski MD at [facility] Left: Ankle 11/13/2015 87SR-0410 / N/A / [id number]
--- OUTSIDE RECORDS SUMMARY | 2024-11-09 14:16 | XMS_ITS | CONTINUITY OF CARE DOCUMENT ---
Author Name chan giles Address Unknown Organization [facility] Address [address] [place] [address] Phone [phone] Care Team Providers Care Librarian Name Role Phone Chuy SHAHID, Amilcar Unavailable [phone] FABIAN DENIS MD Unavailable INSURANCE PROVIDERS Payer name Policy type / Coverage type [place] red republican ID HEALTHCARE AND FAMILY SERVICES Medicaid 1 [id number]
--- OUTSIDE RECORDS SUMMARY | 2024-11-09 14:16 | XMS_ITS | Clinical Summary ---
Author Organization [facility] Address [address] [place] [address] Care Team Providers Care Loop Tacker Name Role Phone See Jacobs Primary Care [...] patient's age to complete this topic [place] [address] Care Teams Loop Tacker Relationship Specialty Start Date End Date See Jacobs PA [address] [place] [id number] PCP - General Internal Medicine 07/13/22
--- OUTSIDE RECORDS SUMMARY | 2024-11-09 14:16 | XMS_ITS | Patient Health Summary ---
Author Organization [facility] Address [address] [place] [address] Care Team Providers Care Sociology Instructor Name Role Phone Unavailable Primary Care Provider Unavailabl e Note from [facility],non-owned Affiliates and Associated Physician Practices is amultiple site organization consisting of ambulatory clinics and hospital sitesin [place], [place], [place] and [place]. This disclosure is being madepursuant to the Care Everywhere program and may not contain all information available regarding this patient. Last updated 18.[facility] Allergies No known active allergies Medications * [...] Comments Blood Pressure 124/76 08/16/2015 9:37 PM PARLIAMENTARY LIBRARIAN Pulse 76 08/16/2015 9:37 PM PARLIAMENTARY LIBRARIAN Temperature 37.3 C (99.1 F) 08/16/2015 9:37 PM PARLIAMENTARY LIBRARIAN Respiratory Rate 16 08/16/2015 9:37 PM PARLIAMENTARY LIBRARIAN Oxygen Saturation 100% 08/16/2015 5:30 PM PARLIAMENTARY LIBRARIAN Inhaled Oxygen Concentration - - Weight 60.8 kg (134 lb) 08/16/2015 5:30 PM PARLIAMENTARY LIBRARIAN Height 166 cm (5' 5.35 ) 01/22/2014 10:25 AM CDT Body Mass Index - - Medical Devices Implanted Type Area Business Center Attendant Device Identifier Shelf Expiration Date Model / Serial / Lot Dustin Bone Prodense Inj 10cc Implanted:Qty: 1 on 01/01/2013 by Alexis Kowalski MD at [facility] Left: Ankle 11/13/2015 87SR-0410 / N/A / [id number] Dustin Bone Prodense Inj 10cc Implanted:Qty: 1 on 01/01/2013 by Alexis Kowalski MD at [facility] Left: Ankle 11/13/2015 87SR-0410 / N/A / [id number] Procedures * XR ABD OBSTRUCTION SERIES 2VW(Performed [...] XR ABD OBSTR SERIES (08/16/2015 8:28 PM PARLIAMENTARY LIBRARIAN) Anatomical Region Laterality Modality Abdomen Radiographic Patty ging 08/17/2015 7:02 AM PARLIAMENTARY LIBRARIAN Impressions 08/17/2015 7:03 AM PARLIAMENTARY LIBRARIAN Nonobstructive bowel gas pattern. Narrative 08/17/2015 7:03 AM PARLIAMENTARY LIBRARIAN Exam: Abdomen obstruction series History: 15-year-old female [...] - POCT (IP) BEAKER (08/16/2015 8:07 PM PARLIAMENTARY LIBRARIAN) Only the most recent of2 resultswithin the time period is included. HCG Qual Urine Negative Negative [facility] POCT TESTING QC Verified Yes Yes [facility] PO CT TESTING Urine specimen (specimen) URINE / Unknown 08/16/2015 8:07 PM PARLIAMENTARY LIBRARIAN Nelda Collins MD LAB - POINT OF CARE ORDERABLES Performing Organization Address City/State/[facility] Co de Phone Number [facility] POCT TESTING [facility] [phone] * (ABNORMAL) DIFFERENTIAL MANUAL (08/16/2015 7:50 PM PARLIAMENTARY LIBRARIAN) WBC Auto 10.7 x10^9/L 08/16/2015 8:44 PM [facility] WBC Corrected 4.5 - 11.0 x10^9/L 08/16/2015 8:44 PM [facility] nRBC /100 WBC 08/16/2015 8:44 PM [facility] Neutrophil % Manual 70 31 - 78 % 08/16/2015 8:44 PM [facility] Lymphocytes % Manual 15 13 - 54 % 08/16/2015 8:44 PM [facility] Monocytes % Manual 6 4 - 13 % 08/16/2015 8:44 PM [facility] Eosinophils % Manual 1 0 - 8 % 08/16/2015 8:44 PM [facility] Atypical Lymphocyte % Manual 4(H) <=0 % 08/16/2015 8:44 PM [facility] Band % Manual 4 % 08/16/2015 8:44 PM [facility] Cells Counted 100 # cells 08/16/2015 8:44 PM [facility] Platelet Estimation Adequate platelets Normal, Adequate platelets 08/16/2015 8:44 PM [facility] RBC Morphology Normal 08/16/2015 8:44 PM [facility] WBC Morph Normal 08/16/2015 8:44 PM [facility] Blood BLOOD SPECIMEN / Unknown Lab Venipuncture / Unknown 08/16/2015 7:50 PM PARLIAMENTARY LIBRARIAN 08/16/2015 7:54 PM PARLIAMENTARY LIBRARIAN Marcio Nguyen MD LAB - HEMATOLOGY ORD ERABLES [facility] [address] [place] [address] * (ABNORMAL) CBC W AUTO DIFFERENTIAL (08/16/2015 7:50 PM PARLIAMENTARY LIBRARIAN) WBC 10.7 4.5 - 11.0 x10^9/L 08/16/2015 8:14 PM [facility] WBC Corrected x10^9/L 08/16/2015 8:14 PM [facility] RBC 4.96 4.10 - 5.10 x10^12/L 08/16/2015 8:14 PM [facility] Hemoglobin 14.3 12.0 - 16.0 gm/dL 08/16/2015 8:14 PM [facility] Hematocrit 40.5 36.0 - 47.0 % 08/16/2015 8:14 PM [facility] MCV 81.7 78.0 - 98.0 fl 08/16/2015 8:14 PM [facility] MCH 28.8 25.0 - 35.0 pg 08/16/2015 8:14 PM [facility] MCHC 35.3 31.0 - 37.0 gm/dL 08/16/2015 8:14 PM [facility] Platelet Count 215 100 - 400 x10^9/L 08/16/2015 8:14 PM [facility] RDW-CV 13.0 11.5 - 14.0 % 08/16/2015 8:14 PM [facility] MPV 10.6(H) 6.0 - 9.5 fl 08/16/2015 8:14 PM [facility] Blood BLOOD SPECIMEN / Unknown Lab Venipuncture / Unknown 08/16/2015 7:50 PM PARLIAMENTARY LIBRARIAN 08/16/2015 7:54 PM PARLIAMENTARY LIBRARIAN Marcio Nguyen MD LAB - HEMATOLOGY ORD ERABLES [facility] [address] [place] [address] * (ABNORMAL) COMPREHENSIVE METABOLIC PANEL (08/16/2015 7:50 PM [facility]) [facility] Glucose 83 70 - 105 mg/dL 08/16/2015 8:19 PM [facility] Sodium 140 136 - 145 mmol/L 08/16/2015 8:19 PM [facility] Potassium 3.9 3.5 - 5.1 mmol/L 08/16/2015 8:19 PM [facility] Chloride 105 98 - 107 mmol/L 08/16/2015 8:19 PM [facility] CO2 23 20 - 28 mmol/L 08/16/2015 8:19 PM [facility] Calcium 9.87 9.08 - 10.48 mg/dL 08/16/2015 8:19 PM [facility] Anion Gap 12 5 - 20 mmol/L 08/16/2015 8:19 PM [facility] BUN 11.5 5.3 - 18.7 mg/dL 08/16/2015 8:19 PM [facility] Creatinine 0.63 0.61 - 1.07 mg/dL 08/16/2015 8:19 PM [facility] Alkaline Phosphatase 63(L) 100 - 390 U/L 08/16/2015 8:19 PM [facility] ALT 14 U/L 08/16/2015 8:19 PM [facility] AST 15 3 - 35 U/L 08/16/2015 8:19 PM [facility] Protein Total 7.9 6.3 - 8.2 gm/dL 08/16/2015 8:19 PM [facility] Albumin 4.4 3.3 - 4.9 gm/dL 08/16/2015 8:19 PM [facility] Bilirubin Total 1.0 0.3 - 1.2 mg/dL 08/16/2015 8:19 PM [facility] eGFR by MDRD >60 mL/min/1.7 3m2 08/16/2015 8:19 PM [facility] Comment: eGFR calculations are not performed for children under 18 years old. eGFR by MDRD >60 mL/min/1.7 3m2 08/16/2015 8:19 PM [facility] Comment: eGFR calculations are not performed for children under 18 years old. Blood BLOOD SPECIMEN / Unknown Lab Venipuncture / Unknown 08/16/2015 7:50 PM PARLIAMENTARY LIBRARIAN 08/16/2015 8:01 PM PARLIAMENTARY LIBRARIAN Marico Nguyen MD LAB - CHEMISTRY KELLY FUENTES Performing Organization Address [facility] Co de Phone Number [facility] [address] [place] [phone] * LIPASE BLOOD (08/16/2015 7:50 PM PARLIAMENTARY LIBRARIAN) Lipase 16 10 - 220 U/L 08/16/2015 8:19 PM PARLIAMENTARY LIBRARIAN [facility] Blood BLOOD SPECIMEN / Unknown Lab Venipuncture / Unknown 08/16/2015 7:50 PM PARLIAMENTARY LIBRARIAN 08/16/2015 8:01 PM PARLIAMENTARY LIBRARIAN Marcio Nguyen MD LAB - CHEMISTRY [place] F[place]ES Performing Organization Address [facility] Co de Phone Number [facility] [address] [place] [phone] * AMYLASE BLOOD (08/16/2015 7:50 PM PARLIAMENTARY LIBRARIAN) Amylase 47 5 - 65 U/L 08/16/2015 8:19 PM PARLIAMENTARY LIBRARIAN [facility] Blood BLOOD SPECIMEN / Unknown Lab Venipuncture / Unknown 08/16/2015 7:50 PM PARLIAMENTARY LIBRARIAN 08/16/2015 8:01 PM PARLIAMENTARY LIBRARIAN Marcio Nguyen MD LAB - CHEMISTRY [place] FUENTES Performing Organization Address [facility] de Phone Number [facility] [address] [place] [phone] * CHLAMYDIA + GC AMPLIFIED PROBE (08/16/2015 7:45 PM PARLIAMENTARY LIBRARIAN) Chlamydia Amplified Probe Negative Negative 08/17/2015 3:34 PM PARLIAMENTARY LIBRARIAN [facility] GC Amplified Probe Negative Negative 08/17/2015 3:34 PM PARLIAMENTARY LIBRARIAN [facility] Urine URINE / Unknown 08/16/2015 7 :45 PM PARLIAMENTARY LIBRARIAN 08/16/2015 7:54 PM PARLIAMENTARY LIBRARIAN Narrative [facility] - 08/17/2015 3:34 PM PARLIAMENTARY LIBRARIAN This test was developed and its performance characteristics determined by the [facility], [facility]. Female urine specimens tested by the [facility] [place] have not been cleared or approved by [...] Phan MD LAB - MICROBIOLOG Y ORDERABLES [facility] [address] [place] [address], [facility] [phone] * (ABNORMAL) URINALYSIS ROUTINE AUTO (08/16/2015 7:44 PM PARLIAMENTARY LIBRARIAN) Color UA Yellow Straw, Yellow, Dark Yellow 08/16/2015 8:20 PM [facility] Clarity UA Clear 08/16/2015 8:20 PM [facility] Specific [place] UA >=1.030 1.005 - 1.030 08/16/2015 8:20 PM [facility] pH UA 6.0 5.0 - 8.0 pH 08/16/2015 8:20 PM [facility] Protein UA 1+(A) Negative 08/16/2015 8:20 PM [facility] Blood UA 2+(A) Negative 08/16/2015 8:20 PM [facility] Leukocyte UA Negative Negative 08/16/2015 8:20 PM [facility] Nitrite UA Negative Negative 08/16/2015 8:20 PM [facility] Glucose UA Negative Negative 08/16/2015 8:20 PM [facility] Ketone UA 3+(AA) Negative 08/16/2015 8:20 PM [facility] Bilirubin UA 1+(A) Negative 08/16/2015 8:20 PM [facility] Comment:ictotest=negative Urobilinogen UA 0.2 0.1 - 1.0 EU/dL 08/16/2015 8:20 PM [facility] Urine URINE SPECIMEN OBTAINED BY CLEAN CATCH PROCEDURE / Unknown 08/16/2015 7:44 PM PARLIAMENTARY LIBRARIAN 08/16/2015 7:54 PM PARLIAMENTARY LIBRARIAN Samaria Phan MD LAB - URINALYSIS ORDERABLES Performing Organization Address [facility] de Phone Number [facility] [address] [place] [phone] * (ABNORMAL) URINALYSIS MICROSCOPIC ONLY (08/16/2015 7:44 PM PARLIAMENTARY LIBRARIAN) RBC UA 10-20(A) 0-2, 2-5 # /hpf 08/16/2015 8:27 PM [facility] WBC UA 2-5 0-2, 2-5 # /hpf 08/16/2015 8:27 PM [facility] Bacteria UA 2+(A) None Seen, Trace 08/16/2015 8:27 PM [facility] Epithelial Cell UA 2-5 0-2, 2-5 08/16/2015 8:27 PM [facility] Mucus UA 2+ 08/16/2015 8:27 PM [facility] Urine URINE SPECIMEN OBTAINED BY CLEAN CATCH PROCEDURE / Unknown 08/16/2015 7:44 PM PARLIAMENTARY LIBRARIAN 08/16/2015 7:54 PM PARLIAMENTARY LIBRARIAN Samaria Phan MD LAB - URINALYSIS ORDERABLES Performing Organization Address [facility] de Phone Number [facility] [address] [place] [phone] * XR ANKLE 2 VW LEFT (02/13/2013 [...] CDT) Case Report Surgical Pathology Report Case: [id number] Authorizing Provider: Alexis Kowalski MD Ordering Provider: Alexis Kowalski MD Ordering Location: [facility] Collected: 01/01/2013 10:19 AM Pathologist: Remy Whitlock MD Received: 01/01/2013 11:40 AM Signed Out: 01/03/2013 12:42 AM (Final) Specimen: Lesion, Left Calcaneous Biopsy FSA 01/03/2013 12:42 AM [facility] Final Diagnosis SOFT TISSUE, LEFT CALCANEUS, BIOPSY: - UNICAMERAL BONE CYST. 01/03/2013 12:42 AM [facility] Clinical History This is a 12-year-old girl with a left calcaneus lesion who underwent biopsy of the stated lesion. 01/03/2013 12:42 AM T [facility] Frozen Section FROZEN SECTION DIAGNOSIS: SOFT TISSUE, LEFT CALCANEUS, BIOPSY: -BENIGN, FAVOR UNICAMERAL BONE CYST. ([facility]/cw) 01/03/2013 12:42 AM [facility] Gross Description The specimen is received fresh in single container of gross and microscopic examination labeled with the patient's name, Annastasia Black, and left calcaneus biopsy . It consists of multiple irregular fragments of soft to gritty, dark red and brown tissue submitted for frozen section. The tissue is submitted for permanent in cassette FSA1. (OAN/cwh) 01/03/2013 12:42 AM CDT [facility] Microscopic Description 4 FS H&E, 1 H&E. Permanent sections confirm frozen section diagnosis. Sections show membranous connective tissue, blood clot with cholesterol clefts, and fibrin with trapped mononuclear cells including macrophages and plasma cells. There are hemosiderin-laden macrophages. (SH) 01/03/2013 12:42 AM CDT [facility] Disclaimer The performance characteristics of all immunohistochemical and indirect immunofluorescence stains (if any) cited in this report were determined by the Histopathology Laboratory of [facility] (immunohistochemistry ) or the Histology Laboratory of [facility] (indirect immunofluorescence) in compliance with CLIA `88 regulations. Some of these tests rely on the use of analyte-specific reagents and are subject to specific labeling requirements by the FDA. Such tests were developed by the [facility] of [facility] or the Histology Laboratory of [facility] and have not been cleared or approved by the FDA. The FDA has determined that such clearance or approval is not necessary. These tests are used for clinical purposes and should not be regarded as investigational or for research. This case has been personally reviewed and interpreted by the attending (teaching) pathologist. 01/03/2013 12:42 AM CDT [facility] Synoptic Report 01/03/2013 12:42 AM CDT [facility] Miscellaneous samples (specimen) LESION SPECIMEN / Unknown 01/01/2013 10:19 AM CDT 01/01/2013 11:40 AM CDT Alexis Kowalski MD LAB - PATHOLOGY/CYT OLOGY ORDERABLES Performing Organization Address City/[facility] Co de Phone Number [facility] [address] [place] [address] * XR FOOT 3+ VW LEFT (12/19/2012 [...] FOOT WEIGHT BEARING LEFT (11/14/2012 11:27 AM PARLIAMENTARY LIBRARIAN) Anatomical Region Laterality Modality Ankle / Foot, Lower Extremity Ra diographic Imaging 11/14/2012 11:5 9 AM PARLIAMENTARY LIBRARIAN Impressions 11/14/2012 4:31 PM PARLIAMENTARY LIBRARIAN 1. Nonaggressive appearing lytic calcaneal lesion, unchanged. Differential diagnosis includes an intraosseous lipoma or simple bone cyst. D: Kilo Chong M.D. Narrative 11/14/2012 4:31 PM PARLIAMENTARY LIBRARIAN Exam: Left foot, 2 views weight-bearing History: [...] FOOT WEIGHT BEARING RIGHT (11/14/2012 11:26 AM PARLIAMENTARY LIBRARIAN) Anatomical Region Laterality Modality Ankle / Foot, Lower Extremity Ra diographic Imaging 11/14/2012 11:5 7 AM PARLIAMENTARY LIBRARIAN Impressions 11/14/2012 4:31 PM PARLIAMENTARY LIBRARIAN No acute osseous abnormality. D: Kilo Chong M.D. Narrative 11/14/2012 4:31 PM PARLIAMENTARY LIBRARIAN Exam: Right foot weight bearing, 2 view [...]
--- OUTSIDE RECORDS SUMMARY | 2024-11-09 14:16 | XMS_ITS | Referral Summary ---
Author Organization [facility] [employer] Address [address] [place] [place] [address] Care Team Providers Care Lane Marker Installer Name Role Phone Unavailable Primary Care Provider Unavailabl e Source Comments [facility] [employer],non-owned Affiliates and Associated Physician Practices is amultiple site organization consisting of ambulatory clinics and hospital sitesin [place], [place], [place] and [place]. This disclosure is being madepursuant to the Care Everywhere program and may not contain all information available regarding this patient. Last updated 18.[facility] [employer] Allergies No known active allergies Medications * [...] Comments Blood Pressure 124/76 08/16/2015 9:37 PM EQUIPMENT SCHEDULER Pulse 76 08/16/2015 9:37 PM EQUIPMENT SCHEDULER Temperature 37.3 C (99.1 F) 08/16/2015 9:37 PM EQUIPMENT SCHEDULER Respiratory Rate 16 08/16/2015 9:37 PM EQUIPMENT SCHEDULER Oxygen Saturation 100% 08/16/2015 5:30 PM EQUIPMENT SCHEDULER Inhaled Oxygen Concentration - - Weight 60.8 kg (134 lb) 08/16/2015 5:30 PM EQUIPMENT SCHEDULER Height 166 cm (5' 5.35 ) 01/22/2014 10:25 AM CDT Body Mass Index - - Plan of Treatment Not on file Medical Devices Implanted Type Area Tobacco Primer Machine Operator Device Identifier Shelf Expiration Date Model / Serial / Lot Dustin Bone Prodense Inj 10cc Implanted:Qty: 1 on 01/01/2013 by Alexis Kowalski MD at [facility] Left: Ankle 11/13/2015 87SR-0410 / N/A / [id number] Dustin Bone Prodense Inj 10cc Implanted:Qty: 1 on 01/01/2013 by Alexis Kowalski MD at [facility] Left: Ankle 11/13/2015 87SR-0410 / N/A / [id number]
--- OUTSIDE RECORDS SUMMARY | 2024-11-09 14:16 | XMS_ITS | Clinical Summary ---
Author Organization [facility] Address [address] [place] [address] Care Team Providers Care Felt Checker Name Role Phone Unavailable Primary Care Provider [...]
== END 2024-11-09 13:09 | disposition home or self-care (01) ==
PROVIDERS: Emergency Provider Emergency Medicine
DX: J10.1 Influenza due to other identified influenza virus with other respiratory manifestations (principal); F17.200 Nicotine dependence, unspecified, uncomplicated; Z20.822 Contact with and (suspected) exposure to COVID-19
CPT/HCPCS: 87637; 99283

== ENCOUNTER 2025-05-15 12:11 | Emergency (ER) | payer SELFPAY ==
[2025-05-15 12:12] VITALS: BP 153/117; PULSE 107; RESP 16; TEMP 37.3; O2SAT 96
[2025-05-15] MEDS: IBUPROFEN 600 MG TABLET PO (12:27)
--- NOTE | 2025-05-15 12:33 | ED.URI ---
HPI - URI/Sore Throat General Chief Complaint: Upper Respiratory Infection Stated Complaint: ear ache, sore throat, congestion Time Seen by Provider: 05/15/25 12:15 Source: patient Mode of arrival: ambulatory Limitations: no limitations History of Present Illness HPI Narrative: this is a 25-year-old female who presents with a 3 day history of cough congestion sore throat bilateral ear pressure with sinus congestion and drainage with no fever chills no shortness of breath no audible wheezing no nausea vomiting. MD elicited complaint: cough, sore throat and nasal congestion Onset (ago): day(s) Consistency: constant Severity: moderate Description of mucous: clear Related Data Allergies Allergy/AdvReac Type Severity Reaction Status Date / Time nifedipine Allergy Severe Anaphylaxis Verified 05/15/25 12:13 Review of Systems Review of Systems: All systems reviewed & are unremarkable except as noted in HPI and below PMFSH Past Medical History Medical History Patient denies medical problems Family History Family History Other Family history of malignant neoplasm Social History Social History Smoking status: Current every day smoker Alcohol intake: never Exam Const: General: healthy appearing Nutritional Appearance: well nourished Orientation/consciousness: patient oriented x3 Limitations: no limitations HENMT: Head: normal to inspection Other: frontal sinus tenderness to palpation of bilateral ear pressure and dullness Eyes: Conjunctivae: conjunctivae normal Neck: Neck: normal visual inspection, no lymphadenopathy and no meningeal signs Chest: Chest palpation & inspection: normal inspection of the chest Resp: Effort & Inspection: normal respiratory effort Auscultation: clear to auscultation bilaterally Cardio: Rate: regular rate Rhythm: regular rhythm GI: GI Palp: Yes Soft to palpation Urinary Catheter: Urinary Catheter: patent and draining Neuro: General: patient oriented x3 and moves all extremities Course Course Emergency Course: COVID influenza RSV and strep were performed and reviewed with patient. Nurse at a dose of Motrin p.o. 600mg. Vital Signs Vital signs: Vital Signs Temperature 37.3 C 05/15/25 12:12 Pulse Rate 107 H 05/15/25 12:12 Respiratory Rate 16 05/15/25 12:12 Blood Pressure 153/117 H 05/15/25 12:12 Pulse Oximetry 96 05/15/25 12:12 Oxygen Delivery Room Air 05/15/25 12:12 Temperature 37.3 C 05/15/25 12:12 Pulse Rate 107 H 05/15/25 12:12 Respiratory Rate 16 05/15/25 12:12 Blood Pressure 153/117 H 05/15/25 12:12 Pulse Oximetry 96 05/15/25 12:12 Oxygen Delivery Room Air 05/15/25 12:12 MDM - URI/Sore Throat Lab Data Labs: Lab Results 05/15/25 Range/Units 12:23 Influenza A (RT-PCR) Pending Influenza B (RT-PCR) Pending RSV (RT-PCR) Pending SARS-CoV-2 RNA (RT-PCR) Pending Group A Strep (PCR) Pending Critical Care Time Critical Care Time Critical Care Time: No Discharge Plan Discharge Clinical Impression: Sinusitis Qualifiers: Sinusitis location: frontal Chronicity: acute Recurrence: non-recurrent Qualified Code(s): J01.10 - Acute frontal sinusitis, unspecified Patient Disposition: Home Condition: Stable Instructions: Antibiotic Form, Sinusitis (ED) Additional Instructions: Advised patient to take medication as prescribed and to follow with primary if symptoms persist or worsen. Patient Language: Occitan Prescriptions: No Action benzonatate 200 mg capsule 200 mg PO TID PRN (Reason: cough) Qty: 30 0RF cyclobenzaprine 10 mg tablet 10 mg PO TID PRN (Reason: muscle spasm) Qty: 30 0RF naproxen 500 mg tablet,delayed release (DR/EC) 500 mg PO BID PRN (Reason: pain) Qty: 28 0RF Follow-up/Referrals: UNKNOWN,DOCTOR [Non-Staff]
[2025-05-15 12:56] LABS: Strep Group A RT-PCR NOT DETECTED (Negative)
[2025-05-15 13:08] LABS: Influenza A QL RT-PCR Negative (Negative); Influenza B QL RT-PCR Negative (Negative); RSV RNA, RT-PCR Negative (Negative); SARS-CoV-2 RNA PCR Negative (Negative)
[2025-05-15] MEDS: AZITHROMYCIN 250 MG TABLET 500 MG PO (13:21)
[2025-05-15 13:23] VITALS: BP 147/92; PULSE 95; RESP 16; TEMP 37.1; O2SAT 98
== END 2025-05-15 13:23 | disposition home or self-care (01) ==
LOC: CHSED 13:00
PROVIDERS: Emergency Provider Emergency Medicine; Referring Provider Internal Medicine
DX: J01.10 Acute frontal sinusitis, unspecified (principal); F17.200 Nicotine dependence, unspecified, uncomplicated; Z20.822 Contact with and (suspected) exposure to COVID-19
CPT/HCPCS: 87637; 87651; 99283; A9270